=== PATIENT | female | born 1955 | race Caucasian/White ===

== ENCOUNTER 2017-11-22 16:31 | Emergency (ER) | payer OTHER, SELFPAY ==
[2017-11-22 18:49] VITALS: BP 137/66; PULSE 82; RESP 20; TEMP 36.8; O2SAT 96; BMI 35.6
--- NOTE | 2017-11-22 18:52 | HMH.EDUTC ---
[facility] [place] Disposition Clinical Impression: Trapezius muscle strain Qualifiers: Encounter type: initial encounter Laterality: right Qualified Code(s): S46.811A - Strain of other muscles, fascia and tendons at shoulder and upper arm level, right arm, initial encounter Disposition: Home, Self-Care Condition on Discharge: Good Instructions: DI for Muscle Strain Prescriptions: Cyclobenzaprine HCl [Flexeril 10mg tablet] 10 mg PO Q8HP PRN 30 Days #30 tab PRN Reason: Muscle Spasm Lidocaine [Lidoderm 5% transdermal patch] 1 each TP Q24H 30 Days #30 adh..patch Referrals: Peggy Tesfaye [Primary Care Provider] - Time of Disposition: 19:01 Medical Decision Making - Medical Records Medical records reviewed: Yes: I reviewed the patient's medical records. - Armando Inquiry Pt receiving controlled substance: No [facility] [place] HPI - General Stated complaint: pain in r shoulder blade, rib area Time Seen by Provider: 11/22/17 18:52 Mode of Arrival: Ambulatory Source of Information: Patient Limitations: No Limitations - History of Present Illness Provider Complaint: Pain under right shoulder blade since getting adjusted at the chiropractor two weeks ago Onset (ago): week(s) (2) Location: back Relieving factors: none Exacerbating factors: none Associated symptoms: denies other symptoms Treatments prior to arrival: other (Tylenol) - Related Data Home Medications Medication Instructions Recorded Confirmed gemfibrozil 600 mg tablet 600 mg PO BID 10/28/17 insulin degludec (U-100) 100 50 unit SUB-Q ONCE ml 10/28/17 unit/mL (3 mL) subcutaneous pen metformin 1,000 mg tablet 500 mg PO BID 10/28/17 Previous Rx's Medication Instructions Recorded Cyclobenzaprine HCl [Flexeril 10mg 10 mg PO Q8HP PRN 30 Days #30 tab 11/22/17 tablet] Lidocaine [Lidoderm 5% transdermal 1 each TP Q24H 30 Days #30 11/22/17 patch] adh..patch Allergies Allergy/AdvReac Type Severity Reaction Status Date / Time No Known Allergies Allergy Verified 10/28/17 12:11 [facility] History I have reviewed the patient's past medical history: Yes Medical History: Reports:: Chronic Obstructive Pulmonary Disease (COPD), Coronary Artery Disease, Diabetes Mellitus Type 2, Kidney Stones Other Surgeries: Yes: Hysterectomy-Total - *Social History Smoking Status: Former smoker Tobacco Type: cigarettes # Packs/Day (cigarettes): 2 Alcohol Intake: never *Family Hx:: Adopted ROS Obtained: Yes All systems reviewed & no additional complaints - Musculoskeletal Musculoskeletal: Reports as per HPI, Reports muscle aches Physical Exam - General General appearance: alert, in no apparent distress - Head Head exam: atraumatic, normocephalic - Chest Chest inspection: Present: normal inspection - Respiratory Respiratory exam: Present: normal lung sounds bilaterally - Cardiovascular Cardiovascular exam: Present: regular rate, normal rhythm - Extremities Exam Extremities exam: Present: normal inspection, full ROM - Back Exam Back exam: Present: muscle spasm (right trapezius) - Neurological Exam Neurological exam: Present: oriented X3 - Psychiatric Psychiatric exam: Present: normal affect, normal mood - Skin Skin exam: Present: warm, dry
--- NOTE | 2017-11-22 18:57 | ED_ITS ---
[facility] [place] Disposition Clinical Impression: Trapezius muscle strain Qualifiers: Encounter type: initial encounter Laterality: right Qualified Code(s): S46.811A - Strain of other muscles, fascia and tendons at shoulder and upper arm level, right arm, initial encounter Disposition: Home, Self-Care Condition on Discharge: Good Instructions: DI for Muscle Strain Prescriptions: Cyclobenzaprine HCl [Flexeril 10mg tablet] 10 mg PO Q8HP PRN 30 Days #30 tab PRN Reason: Muscle Spasm Lidocaine [Lidoderm 5% transdermal patch] 1 each TP Q24H 30 Days #30 adh..patch Referrals: Peggy Tesfaye [Primary Care Provider] - Time of Disposition: 19:01 Medical Decision Making - Medical Records Medical records reviewed: Yes: I reviewed the patient's medical records. - Armando Inquiry Pt receiving controlled substance: No [facility] [place] HPI - General Stated complaint: pain in r shoulder blade, rib area Time Seen by Provider: 11/22/17 18:52 Mode of Arrival: Ambulatory Source of Information: Patient Limitations: No Limitations - History of Present Illness Provider Complaint: Pain under right shoulder blade since getting adjusted at the chiropractor two weeks ago Onset (ago): week(s) (2) Location: back Relieving factors: none Exacerbating factors: none Associated symptoms: denies other symptoms Treatments prior to arrival: other (Tylenol) - Related Data Home Medications Medication Instructions Recorded Confirmed gemfibrozil 600 mg tablet 600 mg PO BID 10/28/17 insulin degludec (U-100) 100 50 unit SUB-Q ONCE ml 10/28/17 unit/mL (3 mL) subcutaneous pen metformin 1,000 mg tablet 500 mg PO BID 10/28/17 Previous Rx's Medication Instructions Recorded Cyclobenzaprine HCl [Flexeril 10mg 10 mg PO Q8HP PRN 30 Days #30 tab 11/22/17 tablet] Lidocaine [Lidoderm 5% transdermal 1 each TP Q24H 30 Days #30 11/22/17 patch] adh..patch Allergies Allergy/AdvReac Type Severity Reaction Status Date / Time No Known Allergies Allergy Verified 10/28/17 12:11 [facility] History I have reviewed the patient's past medical history: Yes Medical History: Reports:: Chronic Obstructive Pulmonary Disease (COPD), Coronary Artery Disease, Diabetes Mellitus Type 2, Kidney Stones Other Surgeries: Yes: Hysterectomy-Total - *Social History Smoking Status: Former smoker Tobacco Type: cigarettes # Packs/Day (cigarettes): 2 Alcohol Intake: never *Family Hx:: Adopted ROS Obtained: Yes All systems reviewed & no additional complaints - Musculoskeletal Musculoskeletal: Reports as per HPI, Reports muscle aches Physical Exam - General General appearance: alert, in no apparent distress - Head Head exam: atraumatic, normocephalic - Chest Chest inspection: Present: normal inspection - Respiratory Respiratory exam: Present: normal lung sounds bilaterally - Cardiovascular Cardiovascular exam: Present: regular rate, normal rhythm - Extremities Exam Extremities exam: Present: normal inspection, full ROM - Back Exam Back exam: Present: muscle spasm (right trapezius) - Neurological Exam Neurological exam: Present: oriented X3 - Psychiatric Psychiatric exam: Present: normal affect, normal mood - Skin Skin exam: Present: warm, dry
[2017-11-22 19:13] VITALS: BP 137/66; PULSE 82; RESP 20; TEMP 36.8; O2SAT 96
== END 2017-11-22 19:13 | disposition home or self-care (01) ==
PROVIDERS: Emergency Provider Physician Assistant; PCP Family Medicine
DX: S46.811A Strain of other muscles, fascia and tendons at shoulder and upper arm level, right arm, initial encounter (principal); E11.9 Type 2 diabetes mellitus without complications; Z79.84 Long term (current) use of oral hypoglycemic drugs; Z79.4 Long term (current) use of insulin; J44.9 Chronic obstructive pulmonary disease, unspecified; Z90.710 Acquired absence of both cervix and uterus
CPT/HCPCS: 99202

== ENCOUNTER 2017-12-14 14:59 | Emergency (ER) | payer OTHER, SELFPAY ==
[2017-12-14 15:32] VITALS: BP 123/78; PULSE 71; RESP 18; TEMP 36.6; O2SAT 97; BMI 35.9
--- NOTE | 2017-12-14 15:44 | XR_ITS ---
XR wrist LT min 3V HISTORY: ITS.REASON: SWELLING/HEAT/REDNESS ORDERING PHYSICIAN: Valentine Fonseca PATIENT AGE: 62 years COMPARISON: None FINDINGS: No fracture or dislocation. No lytic or blastic change. There is normal mineralization.. The joint spaces are well-preserved. No significant degenerative/arthritic changes. No erosive changes evident.. No soft tissue gas or radiopaque foreign body. IMPRESSION: Negative wrist
--- NOTE | 2017-12-14 15:49 | HMH.EDUTC ---
[facility] [place] Clinical Impression: Ganglion cyst of dorsum of right wrist Disposition: Home, Self-Care Condition on Discharge: Good Instructions: Ganglion Cyst Additional Instructions: I agree with your primary care. This looks like a ganglion cyst Follow up tomorrow for final xray results but prelim is no acute findings Wear brace as instructed by primary care. Restricting movement of wrist helps with pain but can also help the cyst to resolve. Follow up with primary care if not improving with brace as referral to specialist might be necessary. Referrals: Peggy Tesfaye [Primary Care Provider] - (for new, worsening or persisting symptoms.) Time of Disposition: 16:24 Medical Decision Making Vital Signs: 12/14/17 15:32 Temperature 98 F Temperature Source Temporal Artery Scan Pulse Rate [Right Radial] 71 Respiratory Rate 18 Blood Pressure [Right Arm] 123/78 Blood Pressure Mean [Right Arm] 93 02 Sat by Pulse Oximetry 97 Oxygen Delivery Method Room Air Orders (Tests/Meds): ORDERS Category Date Time Status Wrist XR left minimum 3 views [XR wrist LT min 3V] Stat Exams 12/14/17 15:44 Taken - Radiology Data #1 Image(s): Wrist Image Reviewed: Yes I reviewed the patient's radiology image Preliminary Findings: Normal/NAD - Armando Inquiry Pt receiving controlled substance: No [facility] [place] - General Stated complaint: L wrist pain and knot Time Seen by Provider: 12/14/17 15:49 Mode of Arrival: Family Vehicle Source of Information: Patient Limitations: No Limitations Description of Symptoms (Recalled from Triage Doc. by RN): PT STATES SHE NOTICED A LUMP ON HER LEFT WRIST A WEEK AGO AND NOW SHE IS HAVING SWELLING, ITS HOT, REDDENED. PT SEEN PCP ON FRIDAY AND WAS GIVEN A BRACE BUT ITS STILL BOTHERING HER. HEENT Symptoms (Recalled from RN notes): No Resp Symptoms (Recalled from RN notes): No Skin Symptoms (Recalled from RN notes): No MS Symptoms (Recalled from RN notes): Yes (LEFT WRIST LUMP WITH SWELLING/HEAT/REDNESS) Functional Status (Recalled from RN notes): NA - History of Present Illness Provider Complaint: c/o left wrist knot . First noticed one week ago. Was much larger then. Saw PCP on Friday, can't remember her name but states she is with [facility]. Discussed ganglion cyst, can't take NSAIDs, was given wrist splint and discussed if no better, might need surgery. Daughter saw it today and brought mom here because no better. Wants xray because no xray was done on Friday. Pt feels knot even smaller then Friday. Daughter thinks it looks red and hot. - Related Data Home Medications Medication Instructions Recorded Confirmed gemfibrozil 600 mg tablet 600 mg PO BID 10/28/17 12/14/17 insulin degludec (U-100) 100 50 unit SUB-Q ONCE ml 10/28/17 12/14/17 unit/mL (3 mL) subcutaneous pen metformin 1,000 mg tablet 500 mg PO BID 10/28/17 12/14/17 Aspirin 81 mg PO DAILY 12/14/17 12/14/17 Losartan Potassium [Losartan 50 mg PO DAILY 12/14/17 12/14/17 Potassium] Previous Rx's Medication Instructions Recorded Cyclobenzaprine HCl [Flexeril 10mg 10 mg PO Q8HP PRN 30 Days #30 tab 11/22/17 tablet] Lidocaine [Lidoderm 5% transdermal 1 each TP Q24H 30 Days #30 11/22/17 patch] adh..patch Allergies Allergy/AdvReac Type Severity Reaction Status Date / Time No Known Allergies Allergy Verified 10/28/17 12:11 - Worker's Comp Is this a Worker's Comp case?: No [facility] History I have reviewed the patient's past medical history: Yes Medical History: Reports:: Chronic Obstructive Pulmonary Disease (COPD), Coronary Artery Disease, Diabetes Mellitus Type 2, Kidney Stones Denies:: Cancer, Diabetes Mellitus Type 1, MRSA Other Surgeries: Yes: Coronary Stent, Hysterectomy-Total, Other (cholecystectomy) Amputation: No Fractures: No Comment: Heart Catherterization - Social History Smoking Status: Never smoker Tobacco Type: cigarettes # Packs/Day (cigarettes): 2 Alcohol Intake: never
--- NOTE | 2017-12-14 15:55 | ED_ITS ---
[facility] [place] Disposition Clinical Impression: Ganglion cyst of dorsum of right wrist Disposition: Home, Self-Care Condition on Discharge: Good Instructions: Ganglion Cyst Additional Instructions: I agree with your primary care. This looks like a ganglion cyst Follow up tomorrow for final xray results but prelim is no acute findings Wear brace as instructed by primary care. Restricting movement of wrist helps with pain but can also help the cyst to resolve. Follow up with primary care if not improving with brace as referral to specialist might be necessary. Referrals: Peggy Tesfaye [Primary Care Provider] - (for new, worsening or persisting symptoms.) Time of Disposition: 16:24 Medical Decision Making Vital Signs: 12/14/17 15:32 Temperature 98 F Temperature Source Temporal Artery Scan Pulse Rate [Right Radial] 71 Respiratory Rate 18 Blood Pressure [Right Arm] 123/78 Blood Pressure Mean [Right Arm] 93 02 Sat by Pulse Oximetry 97 Oxygen Delivery Method Room Air Orders (Tests/Meds): ORDERS Category Date Time Status Wrist XR left minimum 3 views [XR wrist LT min 3V] Stat Exams 12/14/17 15:44 Taken - Radiology Data #1 Image(s): Wrist Image Reviewed: Yes I reviewed the patient's radiology image Preliminary Findings: Normal/NAD - Armando Inquiry Pt receiving controlled substance: No [facility] [place] HPI - General Stated complaint: L wrist pain and knot Time Seen by Provider: 12/14/17 15:49 Mode of Arrival: Family Vehicle Source of Information: Patient Limitations: No Limitations Description of Symptoms (Recalled from Triage Doc. by RN): PT STATES SHE NOTICED A LUMP ON HER LEFT WRIST A WEEK AGO AND NOW SHE IS HAVING SWELLING, ITS HOT, REDDENED. PT SEEN PCP ON FRIDAY AND WAS GIVEN A BRACE BUT ITS STILL BOTHERING HER. HEENT Symptoms (Recalled from RN notes): No Resp Symptoms (Recalled from RN notes): No Skin Symptoms (Recalled from RN notes): No MS Symptoms (Recalled from RN notes): Yes (LEFT WRIST LUMP WITH SWELLING/HEAT/ REDNESS) Functional Status (Recalled from RN notes): NA - History of Present Illness Provider Complaint: c/o left wrist knot . First noticed one week ago. Was much larger then. Saw PCP on Friday, can't remember her name but states she is with [facility]. Discussed ganglion cyst, can't take NSAIDs, was given wrist splint and discussed if no better, might need surgery. Daughter saw it today and brought mom here because no better. Wants xray because no xray was done on Friday. Pt feels knot even smaller then Friday. Daughter thinks it looks red and hot. - Related Data Home Medications Medication Instructions Recorded Confirmed gemfibrozil 600 mg tablet 600 mg PO BID 10/28/17 12/14/17 insulin degludec (U-100) 100 50 unit SUB-Q ONCE ml 10/28/17 12/14/17 unit/mL (3 mL) subcutaneous pen metformin 1,000 mg tablet 500 mg PO BID 10/28/17 12/14/17 Aspirin 81 mg PO DAILY 12/14/17 12/14/17 Losartan Potassium [Losartan 50 mg PO DAILY 12/14/17 12/14/17 Potassium] Previous Rx's Medication Instructions Recorded Cyclobenzaprine HCl [Flexeril 10mg 10 mg PO Q8HP PRN 30 Days #30 tab 11/22/17 tablet] Lidocaine [Lidoderm 5% transdermal 1 each TP Q24H 30 Days #30 11/22/17 patch] adh..patch Allergies Allergy/AdvReac Type Severity Reaction Status Date / Time
[2017-12-14 16:29] VITALS: BP 120/85; PULSE 68; RESP 18; TEMP 36.8; O2SAT 98
== END 2017-12-14 16:30 | disposition home or self-care (01) ==
PROVIDERS: Emergency Provider Nurse Practitioner Family; PCP Family Medicine
DX: M67.431 Ganglion, right wrist (principal); E11.9 Type 2 diabetes mellitus without complications; Z79.4 Long term (current) use of insulin; Z79.84 Long term (current) use of oral hypoglycemic drugs; Z79.82 Long term (current) use of aspirin; Z90.49 Acquired absence of other specified parts of digestive tract; J44.9 Chronic obstructive pulmonary disease, unspecified; Z95.5 Presence of coronary angioplasty implant and graft
CPT/HCPCS: 73110; 99202